=== PATIENT | male | born 1985 | race Caucasian/White ===

== ENCOUNTER 2017-06-11 13:32 | Inpatient (IN) ==
--- NOTE | 2017-06-10 22:04 | Discharge Summary ---
<Ciera Escobar - Last Filed: 06/10/17 21:58> Date of Encounter: 06/10/17 - Discharge Diagnosis (1) Status post total hip replacement, left Priority: Primary Status: Acute (2) Arthritis of left hip Priority: Primary Status: Acute (3) Tobacco use Priority: Secondary Status: Chronic - Discharge Medications Home Medications: Aspirin Enteric Coated [Aspirin EC] 325 mg PO DAILY #21 tablet. 06/10/17 [Rx] OxyCODONE Immed Rel [Roxicodone 5 MG] 5 mg PO Q6HR PRN #28 tablet 06/10/17 [Rx] Allergies/Adverse Reactions: 3 Allergy/AdvReac Type Severity Reaction Status Date / Time No Known Allergies Allergy Verified 06/11/17 14:08 Primary care physician: PCP NONE - Patient Status Disposition: Home, Self-Care Condition: Good - Discharge Instructions Follow Up With: NONE,PCP [Primary Care Provider] - - Hospital Course Hospital course: Mr. Menard is a 32 year old male - Time Spent with Patient Total time spent providing and/or coordinating discharge services: <Kaleb Flores - Last Filed: 06/12/17 06:37> Date of Encounter: 06/12/17 Time of Encounter: 06:36 - Discharge Diagnosis (1) Arthritis of left hip Priority: Primary Status: Chronic (2) Tobacco use Priority: Secondary Status: Chronic (3) Status post total hip replacement, left Priority: Primary Status: Acute Primary care physician: PCP NONE - Patient Status Functional capacity at discharge: uses cane/walker Overall status at discharge: patient is progressing back to baseline - Hospital Course Hospital course: Mr. Menard is a 32 year old male Status post left total hip replacement The patient had an uneventful postoperative course. They received antibiotics and physical therapy and were discharged in stable condition. There will follow -up in the office in 2 weeks. - Time Spent with Patient Total time spent providing and/or coordinating discharge services:
[2017-06-11] MEDS ORDERED: CeFAZolin Pre 2,000 MG/100 ML 2,000 MG/100 ML BAG IVPB ONE (13:42)
[2017-06-11] MEDS ORDERED: Plasma-Lyte A (PH 7.4) 1,000 ML IVC SCH (13:45)
--- NOTE | 2017-06-11 13:55 | History & Physical Report ---
Date of Encounter: 06/11/17 Time of Encounter: 13:55 24 Hour HP Update - Instructions Instructions: If the History and Physical is less than 30 days old and was completed prior to A.M. admission and or procedure and has NOT been updated on calendar day of procedure please complete this update prior to performing procedure. - Update Patient reports changes in Medical Condition: No Changes in examination, assessment, or condition: No Changes in Medication: No Preop tests/diagnostics Reviewed: Yes Surgery Remains Indicated: Yes Consent for Planned Operative Procedure(s) Verified: Yes - Pre-Operative Checklist Preoperative Checklist Indicated: No Prophylactic Antibiotic Ordered: Yes Is VTE Prophylaxis Indicated?: Yes
[2017-06-11] MEDS: Ringers Solution, Lactated 1,000 ML IVC SCH ×2 (14:05→15:25)
--- NOTE | 2017-06-11 14:07 | Anesthesia Evaluation PreOp ---
Date of Encounter: 06/11/17 Time of Encounter: 14:05 - Past History Planned Operation: Left Total Hip Cardiac History: Denies any Significant Hx Pulmonary History: Denies Any Significant HX OBSTETRICAL TECH History: Denies Any Significant HX Other Medical History: Other (RA) Anesthesia History: No Prior Anesthetic Complications, Past Anesthesia (eye x 2) Alcohol Use: occasionally Drug use: none Medications and Allergies Aspirin Enteric Coated [Aspirin EC] 325 mg PO DAILY #21 tablet. 06/10/17 [Rx] OxyCODONE Immed Rel [Roxicodone 5 MG] 5 mg PO Q6HR PRN #28 tablet 06/10/17 [Rx] 3 Allergy/AdvReac Type Severity Reaction Status Date / Time No Known Allergies Allergy Verified 06/11/17 14:08 - Meds/Allergy Pre-op Review Medications Reviewed: Yes Allergies Reviewed: Yes Beta Blockers on Current Med List: No Anesthesia Results - Labs Laboratory Tests 05/29/17 05/29/17 05/29/17 10:12 10:12 10:12 WBC 10.0 Hgb 15.1 Hct 45.1 Plt Count 286 INR 1.0 Sodium 143 Potassium 4.0 Chloride 107 Carbon Dioxide 25 BUN 11 Creatinine 1.00 Anesthesia Exam O2 Sat Height 1.75 m Height 1.75 m Weight 96.162 kg Weight 96.162 kg O2 Sat by Pulse Oximetry 97 Vital Signs Temp Pulse Resp BP Pulse Ox 98.9 F 68 18 118/75 97 06/11/17 13:46 06/11/17 13:46 06/11/17 13:46 06/11/17 13:46 06/11/17 13:46 Height: 5'9'' Weight: 212# NPO (# of Hours): > 8 hrs Pain Scale: 0 Pain Scale Used: Numeric (1 - 10) - HEENT Pupil (Motor): Pupils equal, EOMI Mallampati: I Teeth: Normal Oral Opening: Greater than 3 - OBSTETRICAL TECH LOC: Oriented, Confused OBSTETRICAL TECH Motor: Normal RUE, Normal LUE, Normal RLE, Normal LLE, Normal Face OBSTETRICAL TECH Sensory: Normal: RUE, LUE, RLE, LLE, Face - Cardiac Rhythm: Regular Murmur: None JVD: No Carotid Bruit: No - Pulmonary Breath Sounds: bilateral Clear Respiratory Effort: Symmetrical Anesthesia Assess/Plan ASA Score: 2 Modified Jake Scale for Level of Consciousness: Cooperative, oriented, and tranquil Anesthetic Plan: General, Regional (Left Fascia Iliaca Nerve block) Autologous Blood: Yes Monitoring Plan: Standard Monitors Recovery Plan: PACU
[2017-06-11] MEDS ORDERED: Ethanol\\Acetic Acid\\Na Ace\\Ben 1,000 ML IRRIG.SOLN IR ONE (14:17)
[2017-06-11] MEDS ORDERED: *HR* Midazolam HCl 5 MG/5 ML VIAL IVP ONE (14:25)
[2017-06-11] MEDS ORDERED: *HR* FentaNYL (PF) 100 MCG/2 ML VIAL ONE (14:25)
[2017-06-11] MEDS ORDERED: Bupivacaine/Clonidine Syringe 1 EACH SYRINGE ONE (14:26)
[2017-06-11] MEDS ORDERED: *HR* Rocuronium Bromide 50 MG/5 ML VIAL ONE (14:28)
[2017-06-11] MEDS ORDERED: Lidocaine -MPF 2% 2 ML VIAL ONE (14:28)
[2017-06-11] MEDS ORDERED: *HR* HYDROmorphone 2 MG/ML SYRINGE ONE (14:28)
[2017-06-11] MEDS ORDERED: *HR* Succinylcholine 200 MG/10 ML VIAL IVP ONE (14:28)
[2017-06-11] MEDS ORDERED: Lidocaine -MPF 4% 5 ML AMPUL ONE (14:28)
[2017-06-11] MEDS ORDERED: *HR* Propofol 200 MG/20 ML VIAL IVP ONE (14:28)
--- NOTE | 2017-06-11 14:43 | Anesthesia Procedures ---
Date of Encounter: 06/11/17 Time of Encounter: 14:40 Procedures: Anesthesia - Nerve Block Procedure Date: 06/11/17 Time: 14:40 Allergies/Adv Reactions: nka Pre-op Diagnosis: left hip OA Surgical Procedure: left ROSA Checklist: Correct Patient Identifier, Correct procedure, History checked Correct side: Left Blood Thinner: No Monitor Applied: EKG, BP, Pulse Oximetry Supplemental Oxygen via Nasal Cannula (L/min): 2 Sedation: Versed (mg): 5 Sedation: Fentanyl (mcg): 100 Indication: Post Op Analgesia Pre-op Neuro Deficits: No Block Type: Other (fascia iliaca) Catheter placed: No Sterile Technique: Yes Ultrasound used: Yes Anatomy identified: Yes Visual spread of Local: Yes Neuro Stimulation: No Blood on Needle Aspiration: No Smooth Injection of Local: Yes Pain with Injection of Local: No Prep: Chlorhexadine Needle: 22 x 50 mm Stimuplex Local: 0.25% Bupivicaine w/Clonidine 20 mcg/cc Volume (cc): 60 Number of Attempts: 1 Complications: None/effective block Vitals: Vital Signs/O2 Sat/Glucose, Most Recent Temp Pulse Resp BP Pulse Ox 98.9 F 78 18 140/91 98 06/11/17 13:46 06/11/17 14:25 06/11/17 14:25 06/11/17 14:25 06/11/17 14:25
[2017-06-11] MEDS ORDERED: Ondansetron 4 MG/2 ML VIAL ONE (14:51)
[2017-06-11] MEDS ORDERED: Dexamethasone 4 MG/ML VIAL ONE (14:51)
[2017-06-11] MEDS ORDERED: *HR* Meperidine 25 MG/ML SYRINGE IVP PRN (14:53)
[2017-06-11] MEDS ORDERED: Ondansetron 4 MG/2 ML VIAL IVP ONE (14:53)
[2017-06-11] MEDS ORDERED: Naloxone 0.4 MG/ML INJ IVP PRN ×2 (14:53→17:00)
[2017-06-11] MEDS ORDERED: Albuterol 2.5 MG/3 ML NEBULIZER IH ONE (14:53)
[2017-06-11] MEDS ORDERED: *HR* HYDROmorphone (PF) 1 MG/ML SYRINGE IVP PRN ×2 (14:53→17:00)
[2017-06-11] MEDS ORDERED: Ringers Solution, Lactated 1,000 ML IVC SCH ×2 (15:00→17:00)
--- NOTE | 2017-06-11 15:38 | Orthopedic Operative Note ---
Date of procedure: 06/11/17 Pre-op diagnosis: Left hip arthritis Post-op diagnosis: same Procedure: Procedure: Left Total Hip Replacment Estimated blood loss: 400 cc Hardware: Metal and polyethylene replacement. Biomet DM Cup: 52 G7 fin cup Femoral size 11echo full profile lateralized stem Head: 0 head with Claudette Procedural Notes: Exam under anesthesia revealed external rotation deformity with restriction of internal rotation. Operative procedure: The patient was brought to the operating room and placed on the operating room table. After general anesthesia was administered the patient was placed in the lateral decubitus position with the operative leg up. All pressure points were padded appropriately and the head was stabilized in the neutral position. The operative extremity was prepped and draped in the sterile surgical fashion patient received IV antibiotic prior to skin incision. A standard posterior approach is made to the operative hip, the incision was made through the skin and subcutaneous tissue hemostasis was obtained with Bovie cautery. Using careful sharp dissection the fascia was identified and incised exposing the external rotators. The external rotators were released off the greater trochanter and tagged with #2 FiberWire suture. The capsule was T'd open and the hip was brought into internal rotation. Patient noted to have grade 4 arthritic changes femoral head. The femoral neck cut was made at the appropriate level. An anterior capsulotomy was performed for the anterior retractor. Soft tissues removed from the acetabulum. Patient noted to have grade 4 arthritic changes acetabulum. Acetabulum was first reamed medially, and then reamed in 15 degrees of anteversion and 45 degrees off the horizontal. It was reamed up to the appropriate size 52 The appropriate-sized 52 acetabular cup was impacted in place in 15 degrees of anteversion and 45 degrees off the horizontal. This had good fit and fixation. The hip was brought back in to internal rotation and prepared with the juke box mechanic followed by the canal finder followed by broaching process in 20 degrees anteversion. It was broached up to the appropriate size 11 The femoral implant was impacted in place in 20 degrees of anteversion. Trial reduction found the hip to be stable with 0 head and Claudette. The trials were removed and the real implants were impacted in place. The hip was reduced, patient had apparent equal leg lengths. The hip had excellent stability with forward flexion to 90 degrees adduction of 30 degrees and internal rotation of 60 degrees. The hip had no shuck. The hips after 2 minutes with a Betadine saline solution. It was irrigated out with 2 L of pulse irrigation. The PA close the knee. Fascia was closed with a running #2 PDS suture. The deep tissue was irrigated and closed deep with #1 PDS suture superficially with 0 PDS suture and skin was closed with Dermabond and skin molly. The patient was placed in a sterile dressing and abduction pillow. The patient was extubated and transferred to the recovery room in stable condition. Anesthesia: GETA Surgeon: Kaleb Flores Condition: stable Disposition: PACU
--- NOTE | 2017-06-11 16:39 | Anesthesia Evaluation Post Op ---
Date of Encounter: 06/11/17 Time of Encounter: 16:38 - Vital Signs Vital Signs: Selected Entries 06/11/17 16:06 06/11/17 16:26 Temperature 98.5 F Pulse Rate 74 Respiratory Rate 19 Blood Pressure 140/88 O2 Sat by Pulse Oximetry 100 Oxygen Flow Rate (LPM) 2 - Lungs Lungs: Clear Ascult./Percussion - Airway Airway: Non-obstructed - Cardiovascular Regular Rate - Mental Status Mental Status: Alert & Oriented, Answers Appropriately - Pain Pain Scale: 5 Pain Scale used: Numeric (1 - 10) - Nausea Vomiting Nausea Vomiting: Not Present - Hydration Hydration: Ice chips, Has not voided - Discharge PostOp Status: Transfer Patient to floor
[2017-06-11] MEDS ORDERED: Ondansetron 4 MG/2 ML VIAL IVP PRN (17:00)
[2017-06-11] MEDS ORDERED: ceFAZolin 2,000 MG in D5% in Water 100 ML IVPB SCH (17:00)
[2017-06-11] MEDS ORDERED: *HR* OxyCODONE Immed Rel 5 MG TABLET PO PRN ×2 (17:00)
[2017-06-11 17:28] LABS: Hematocrit 44.1 % (37.5-50.1); Hemoglobin 14.8 g/dL (12.9-16.9)
[2017-06-11] MEDS ORDERED: *HR* Enoxaparin 30 MG/0.3 ML SYRINGE SQ SCH (18:00)
[2017-06-11] MEDS: *HR* Enoxaparin 30 MG/0.3 ML SYRINGE SQ SCH (18:07)
[2017-06-11] MEDS: Ascorbic Acid 500 MG TABLET PO SCH (18:07)
[2017-06-11] MEDS ORDERED: MOM Conc 10 ML UD.LIQ PO PRN (21:00)
[2017-06-11] MEDS ORDERED: Temazepam 15 MG CAPSULE PO PRN (21:00)
[2017-06-11] MEDS ORDERED: Sennosides 8.6 MG TABLET PO PRN (21:00)
[2017-06-11] MEDS: ceFAZolin 2,000 MG in D5% in Water 100 ML IVPB SCH (21:20)
[2017-06-12] MEDS: ceFAZolin 2,000 MG in D5% in Water 100 ML IVPB SCH (06:00)
[2017-06-12] MEDS: *HR* Enoxaparin 30 MG/0.3 ML SYRINGE SQ SCH (06:01)
--- NOTE | 2017-06-12 06:37 | Orthopedics Progress Note ---
Date of Encounter: 06/12/17 Time of Encounter: 06:37 - Assessment and Plan (1) Arthritis of left hip Current Visit: No Status: Chronic (2) Tobacco use Current Visit: No Status: Chronic (3) Status post total hip replacement, left Current Visit: No Status: Acute Subjective Interval history: Patient was seen this morning doing well without complaints. Afebrile vital signs stable. Operative extremity: Neurovascularly intact Dressing clean dry and intact Calves nontender Assessment and plan: Continue with postoperative care Hematocrit 44 discharged today Objective Vital signs: Vital Signs Temp Pulse Resp BP Pulse Ox 06/12/17 04:34 99.0 F 95 16 147/74 99 06/12/17 02:29 99.6 F 108 16 146/79 99 06/11/17 20:01 98.6 F 74 20 129/84 99 06/11/17 18:54 98.4 F 70 16 105/71 99 06/11/17 18:05 98.7 F 77 16 135/81 99 06/11/17 17:30 97.9 F 97 16 135/85 99 06/11/17 17:02 97.8 F 58 16 146/82 100 06/11/17 16:36 98.8 F 68 16 140/92 100 06/11/17 16:26 74 19 140/88 100 06/11/17 16:16 92 16 138/84 100 06/11/17 16:06 98.5 F 87 16 133/91 100 06/11/17 14:25 78 18 140/91 98 06/11/17 13:46 98.9 F 68 18 118/75 97 Intake and Output 06/11/17 06/11/17 06/12/17 15:59 23:59 07:59 Intake Total 1000 / 1000 600 / 600 400 / 400 Output Total 400 / 400 1000 / 1000 Balance 600 / 600 600 / 600 -600 / -600 Intake: IV Fluids 1000 / 1000 100 / 100 Lactated Ringers 1,000 ML @ 25 1000 / 1000 mls/hr IVC .Q24H NIKA Rx#: [id number] Ancef 2,000 MG In Dextrose 5% 100 / 100 100 ML @ 200 mls/hr IVPB Q8H NIKA Rx#:[id number] Oral 500 / 500 400 / 400 Output: Urine 0 / 0 1000 / 1000 Estimated Blood Loss 400 / 400 Other: # Voids 1 1 Weight 96.162 kg - Labs CBC & BMP: 06/11/17 17:21 - VTE Documentation of Mechanical Device: Venous foot pump, device Consult Discharge Plan - Plan Referrals: NONE,PCP [Primary Care Provider] -
[2017-06-12 06:45] LABS: BUN/Creatinine Ratio 10 (6-26); Blood Urea Nitrogen 10 mg/dL (8-26); Calcium 9.2 mg/dL (8.6-10.8); Carbon Dioxide 26 mEq/L (19-29); Chloride 105 mEq/L (98-109); Glucose 153 mg/dL (70-99); Osmolality,Calculated 290 (280-300); Potassium 3.9 mEq/L (3.5-4.5); Sodium 139 mEq/L (136-145); eGFR For African Americans > 60 (> 60); eGFR For Non-African Americans > 60 (> 60)
[2017-06-12 06:55] LABS: Hematocrit 39.1 % (37.5-50.1)
[2017-06-12 06:56] LABS: Hemoglobin 13.2 g/dL (12.9-16.9)
[2017-06-12] MEDS: Ascorbic Acid 500 MG TABLET PO SCH (07:52)
[2017-06-12] MEDS ORDERED: Multivit/Ca/Min/Fe/FA 1 TAB TABLET PO SCH (09:00)
--- NOTE | 2017-06-12 11:43 | Event Note ---
Date of Encounter: 06/12/17 Time of Encounter: 11:42 PCR - Left THR 06/11/17 POD#.1 Comorbidities: Tobacco use Labs: 06/12 - Stable Patient seen at bedside. Pain control: adequate Participating in PT. All questions and concerns addressed. Educated on use of incentive spirometer, ambulation, and hydration. Patient educated on post-operative restrictions and care. Addressed: see above D/C plan: Home 06/12/17 with OP
[2017-06-12 12:15] VITALS: BP 142/89
== END 2017-06-12 15:10 | disposition home or self-care (01) | DRG 470 ==
LOC: SAMDAY 13:32 → 3NENU 17:12
PROVIDERS: ADMIT Orthopaedic Surgery; ATTEND Orthopaedic Surgery